=== PATIENT | female | born 1955 | race Caucasian/White ===

== ENCOUNTER → 2018-11-20 | Outpatient (CLI) | payer BC, OTHER ==
[~2018-11-20] MED LIST: AUGMENTIN 875875 MG PO; COPAXONE20 MG/SYR SC; HYDROCODON-ACE1 EAC7 PO; IBUPROFEN200 M2 PO; NEXIUM40 MG PO
[2018-11-20 15:15] LABS: ABSOLUTE BASOPHILS 0.1 thou/uL (0.0-0.2); ABSOLUTE EOSINOPHILS 0.1 thou/uL (0.0-0.7); ABSOLUTE LYMPHOCYTES 2.2 thou/uL (0.8-5.3); ABSOLUTE MONOCYTES 0.4 thou/uL (0.0-1.2); ABSOLUTE NEUTROPHILS 3.7 thou/uL (1.6-8.1); BASOPHILS 0.9 %; HEMATOCRIT 40.3 % (37.0-47.0); HEMOGLOBIN 13.4 gm/dL (12.0-15.0); LYMPHOCYTES 35.1 %; MCH 29.7 pg (26.0-34.0); MCHC 33.2 g/dL (28.0-37.0); MCV 89.4 fL (80.0-100.0); MONOCYTES 5.6 %; MPV 7.9 fl. (7.2-11.1); NUCLEATED RBCS 0 /100WBC; PLATELET COUNT* 254 thou/uL (150-400); POLYS 57.4 %; RBC 4.51 mil/uL (4.20-5.00); RDW-CV 13.2 % (10.5-14.5); WBC 6.4 thou/uL (4.0-11.0)
[2018-11-20 15:28] LABS: ALBUMIN 3.6 g/dL (3.4-5.0); CALCIUM 9.1 mg/dL (8.5-10.1); CREATININE 0.7 mg/dL (0.6-1.3); POTASSIUM 4.1 mmol/L (3.5-5.1); TOTAL BILIRUBIN 0.3 mg/dL (<0.1-1.0)
== END ==
LOC: M.LAB 14:45
PROVIDERS: Psychiatry & Neurology Neuromuscular Medicine
DX: G35 Multiple sclerosis (principal); M79.661 Pain in right lower leg; M79.662 Pain in left lower leg